=== PATIENT | male | born 1965 | race Caucasian/White ===

== ENCOUNTER 2021-08-14 08:13 | Outpatient (CLI) | payer BC, SELFPAY ==
--- NOTE | 2021-08-14 10:00 | EST_ITS ---
Patient Info Name: Dexter De Santiago Age: 56 years : 1965 Gender: Male Ht: 65 in Wt: 180 lbs BSA: 1.96 m2 HR: 100 bpm BP: 118 / 90 mmHg Heart Rhythm: Tachycardia Technical Quality: Good Exam Date: 08/14/2021 9:43 AM Exam Location: [facility] [place] Patient Status: Outpatient Admit Date: 08/14/2021 Staff Ordering Physician: Lio Barry MD Attending Provider: Cynthia Alonso CEP Exercise Technologist: Aylin Horton CRT Exercise Physician: Cynthia Alonso CEP Exam Type: CA stress test treadmill w NM Study Info Indications AbnormalEKG - An exercise stress test was performed. History/Risk Factors Abnormal EKG. Inferior ST elevation. Summary 1. 1. Negative Binh exercise stress test for ischemic ST changes by ECG criteria. 2. 2. Good functional capacity, achieving 10 METs of workload. 3. 3. Appropriate HR response to exercise. 4. 4. Appropriate HR recovery at 1 minute post exercise. 5. 5. Nuclear scan to follow and will be reported separately. Please correlate with it. Protocol: Ibnh Stress ECG Details Stage: REST Duration (min): 1 min : 6 sec Speed (mph): 0.0 Grade (%): 0 HR (bpm): 101 SBP (mmHg): 118 DBP (mmHg): 90 METS: --- Stage: REST Duration (min): 15 min : 35 sec Speed (mph): 0.0 Grade (%): 0 HR (bpm): 104 SBP (mmHg): 118 DBP (mmHg): 90 METS: --- Stage: STAGE 1 Duration (min): 1 min : 0 sec Speed (mph): 1.7 Grade (%): 10 HR (bpm): 123 SBP (mmHg): 118 DBP (mmHg): 90 METS: --- Stage: STAGE 1 Duration (min): 2 min : 0 sec Speed (mph): 1.7 Grade (%): 10 HR (bpm): 130 SBP (mmHg): 118 DBP (mmHg): 90 METS: --- Stage: STAGE 1 Duration (min): 3 min : 0 sec Speed (mph): 1.7 Grade (%): 10 HR (bpm): 130 SBP (mmHg): 118 DBP (mmHg): 90 METS: --- Stage: STAGE 2 Duration (min): 1 min : 0 sec Speed (mph): 2.5 Grade (%): 12 HR (bpm): 132 SBP (mmHg): 118 DBP (mmHg): 90 METS: --- Stage: STAGE 2 Duration (min): 2 min : 0 sec Speed (mph): 2.5 Grade (%): 12 HR (bpm): 146 SBP (mmHg): 164 DBP (mmHg): 72 METS: --- Stage: STAGE 2 Duration (min): 3 min : 0 sec Speed (mph): 2.5 Grade (%): 12 HR (bpm): 143 SBP (mmHg): 164 DBP (mmHg): 72 METS: --- Stage: STAGE 3 Duration (min): 1 min : 0 sec Speed (mph): 3.4 Grade (%): 14 HR (bpm): 158 SBP (mmHg): 164 DBP (mmHg): 80 METS: --- Stage: STAGE 3 Duration (min): 2 min : 0 sec Speed (mph): 3.4 Grade (%): 14 HR (bpm): 166 SBP (mmHg): 164 DBP (mmHg): 80 METS: --- Stage: STAGE 3 Duration (min): 2 min : 15 sec Speed (mph): 3.4 Grade (%): 14 HR (bpm): 166 SBP (mmHg): 168 DBP (mmHg): 78 METS: --- Stage: RECOVERY Duration (min): 0 min : 44 sec Speed (mph): 0.0 Grade (%): 0 HR
--- NOTE | 2021-08-14 16:49 | WPDCARIOSTRE ---
Nuclear Stress Test INDICATIONS Indications: Chest pain PROCEDURE Procedure Performed: Myocardial Perf Spect-Multi Procedure: Patient exercised on a Binh treadmill stress test and at peak exercise was injected with 31.4 mCi of cardiolyte. Multiple tomographic images were obtained. These are of fair quality. There is evidence of small size, mild anterior perfusion defect, and a moderate size, severe inferior perfusion defect during stress imaging. A separate resting images were obtained after patient was injected with 9.9 mCi of cardiolyte. Multiple tomographic images were obtained. These are of good quality. There is no perfusion defect during resting imaging. CONCLUSION Conclusion: 1. Abnormal myocardial perfusion imaging demonstrating a small size anterior and moderate size inferior perfusion defects during stress imaging suggesting reversible ischemia. 2. Left ventriculogram demonstrate a measured ejection fraction of 68% with no wall motion abnormalities. 3. TID score of 0.59 is normal.
== END 2021-08-14 08:14 | disposition home or self-care (01) ==
LOC: CHSIMG 08:17
PROVIDERS: PCP Family Medicine; Visit Provider Family Medicine
DX: R94.31 Abnormal electrocardiogram [ECG] [EKG] (principal)
CPT/HCPCS: 78452; 93017; A9502

== ENCOUNTER 2022-08-06 00:44 | Day surgery (SDC) | payer BC, SELFPAY ==
[2022-07-26 13:10] VITALS: BMI 30.4
[2022-08-06 09:19] VITALS: BP 139/84; PULSE 92; RESP 18; TEMP 36.5; O2SAT 98
[2022-08-06] MEDS: LACTATED RINGERS 1,000 ML 150 ML IV CONT (09:31)
--- NOTE | 2022-08-06 09:55 | P.PNAN_ITS ---
Anes - Initial Pre Proc Eval Procedure: Operation Date: 08/06/22 10:45 Proposed Procedures p Esophagogastroduodenoscopy & Screening Colonoscopy - Sundeep Valente MD Date/Time: 08/06/22 09:55 Surgeon: Sundeep Gutierrez MD Pre Op Diagnosis: GERD; Neoplasm screening Patient Data Age: 57 Gender: M Height: 1.65 m Weight: 82 kg Last Vital Signs Temp 97.7 F 08/06/22 09:19 Pulse 92 08/06/22 09:19 Resp 18 08/06/22 09:19 BP 139/84 08/06/22 09:19 Pulse Ox 98 08/06/22 09:19 O2 Del Method Room Air 08/06/22 09:19 Allergies Allergy/AdvReac Type Severity Reaction Status Date / Time iodine Allergy Unknown unknown Verified 08/06/22 09:17 Home Medications Medication Instructions Recorded Confirmed Type esomeprazole magnesium 40 mg 40 mg PO DAILY 08/30/21 08/06/22 History capsule,delayed release (Nexium) Patient hx anesthesia problems: none Family hx anesthesia problems: none Results Review: All pre-operative results and documents have been reviewed as part of the pre- operative evaluation. REPLACED BY [facility] Past Medical History Medical History Colon cancer screening GERD (gastroesophageal reflux disease) Irritable bowel syndrome Social History Social History Smoking status: Former smoker Smokeless tobacco user: chewing tobacco Alcohol intake: current Drinks per week: 12 Substance use: never Substance use type: does not use Living arrangements: with family Spiritual care concerns: No Anes - Eval Final PreProcedure Day of Procedure 08/06/22 09:55 Patient weight: normal Heart: regular rate and rhythm Lungs: clear to auscultation Airway: Mallampati scale class II Neurological: alert and oriented Last oral intake: >/= 8 hours ASA classification: II Emergent: no Anesthetic plan: proceed Anesthesia type and monitoring: general GIVS and standard monitoring Results Review: All pre-operative results and documents have been reviewed as part of the pre- operative evaluation. Informed Consent: The patient's anesthetic plan and its attendant risks and benefits were discussed with the patient/family/POA. Questions were solicited and answers provided to the satisfaction of the patient/family/POA.
--- NOTE | 2022-08-06 10:04 | PM.HPGS ---
History of Present Illness History of Present Illness Consent: Risks, benefits, and alternatives have been discussed and questions answered. Patient agrees to proceed with procedure. Chief complaint: GERD; Neoplasm screening Narrative: Dexter De Santiago Jr. is a 57 year old male here for egd and colonoscopy. He was diagnosed with IBS about 20 years ago and has been dealing with intermittent abdominal discomfort and sometimes loose stools. He had egd and colonoscopy about 20 years ago, cologuard 2019. Nexium helping with gerd symptoms. Review of Systems Constitutional: Constitutional: Denies headache(s) and Denies weakness Eyes: Eyes: Denies blurry vision ENT: Reports Normal hearing present, Denies headache(s) and Denies neck pain Cardiovascular: Cardiovascular: Denies chest pain and Denies dyspnea Respiratory: Respiratory: Denies dyspnea Gastrointestinal: Gastrointestinal: Reports no additional gastrointestinal complaints Genitourinary: Genitourinary: Denies dysuria Musculoskeletal: Musculoskeletal: Denies neck pain Integumentary/Breasts: Skin/Breast: Denies dry skin Neurologic: Reports Normal hearing present, Denies headache(s) and Denies weakness Psychiatric: Psychiatric: Denies anxiety Endocrine: Endocrine: Denies change in body appearance Hematologic/Lymphatic: Hematologic/Lymphatic: Denies easy bleeding Allergic/Immunologic: Allergic/Immunologic: Denies urticaria PMFSH Past Medical History Medical History Colon cancer screening GERD (gastroesophageal reflux disease) Irritable bowel syndrome Social History Social History Smoking status: Former smoker Smokeless tobacco user: chewing tobacco Alcohol intake: current Drinks per week: 12 Substance use: never Substance use type: does not use Living arrangements: with family Spiritual care concerns: No Meds Home Medications and Allergies Home Medications Medication Instructions Recorded Confirmed Type esomeprazole magnesium 40 mg 40 mg PO DAILY 08/30/21 08/06/22 History capsule,delayed release (Nexium) Allergies Allergy/AdvReac Type Severity Reaction Status Date / Time iodine Allergy Unknown unknown Verified 08/06/22 09:17 Vital Signs Vital Signs - 24 hr 08/06/22 09:19 Temperature 97.7 F Pulse Rate 92 Respiratory Rate 18 Blood Pressure 139/84 Pulse Oximetry 98 Oxygen Delivery Room Air Exam Const: General: comfortable and no acute distress HENMT: Face/Nose/Sinus: Normal nares present Eyes: General: appearance normal, both eyes and all related structures Neck: Neck: no JVD Resp: Auscultation: clear to auscultation bilaterally Cardio: Rate: regular rate Rhythm: regular rhythm GI: Inspection: non-distended GI Palp: Yes Soft to palpation Skin: General skin exam: normal color Neuro: General: gait normal Speech: normal speech Extrem: General: normal to inspection Psych: Mental Status: mental status grossly normal Assessment and Plan Assessment and plan (1) GERD (gastroesophageal reflux disease): Code(s): K21.9 - Gastro-esophageal reflux disease without esophagitis Status: Acute Assessment and Plan: egd with bx on ppi (2) Irritable bowel syndrome: Code(s): K58.9 - Irritable bowel syndrome without diarrhea Status: Acute Assessment and Plan: will check also for celiac (3) Colon cancer screening: Code(s): Z12.11 - Encounter for screening for malignant neoplasm of colon Status: Acute Assessment and Plan: colonoscopy
[2022-08-06 10:32] VITALS: BP 112/77; PULSE 79; RESP 17; TEMP 36.5; O2SAT 98
--- NOTE | 2022-08-06 10:32 | SUR.OPER ---
EGD START 1013, END 1016 COLONOSCOPY START 1020, END 1029
[2022-08-06 10:42] VITALS: BP 114/81; PULSE 97; RESP 22; TEMP 36.5; O2SAT 98
[2022-08-06 10:52] VITALS: BP 122/89; PULSE 81; RESP 23; TEMP 36.5; O2SAT 98
== END 2022-08-06 10:58 | disposition home or self-care (01) ==
PROVIDERS: PCP Family Medicine; Visit Provider Internal Medicine Gastroenterology
PROC: 0DJ08ZZ Inspection of Upper Intestinal Tract, Via Natural or Artificial Opening Endoscopic (ICD-10-PCS; CPT 43235; principal; 2022-08-06 10:45)
DX: Z12.11 Encounter for screening for malignant neoplasm of colon (principal); K57.30 Diverticulosis of large intestine without perforation or abscess without bleeding; D12.3 Benign neoplasm of transverse colon; K64.8 Other hemorrhoids; K29.70 Gastritis, unspecified, without bleeding; K21.9 Gastro-esophageal reflux disease without esophagitis; K58.9 Irritable bowel syndrome, unspecified; F17.220 Nicotine dependence, chewing tobacco, uncomplicated
CPT/HCPCS: 45385; 43239; 88305; J2704; J7120

== ENCOUNTER 2023-08-09 07:03 | Outpatient (CLI) | payer BC, SELFPAY ==
[2023-08-09 07:17] LABS: Basophils Absolute Auto 0.05 K/mm3 (0.00-0.10); Basophils Percent Auto 0.7 % (0.0-1.0); Eosinophils Absolute Auto 0.14 K/mm3 (0.02-0.50); Eosinophils Percent Auto 2.1 % (1.0-6.0); Hematocrit 43.8 % (40.0-54.0); Immature Granulocyte Absolute 0.09 K/mm3 (0.00-0.00); Immature Granulocyte Percent A 1.3 % (0.0-0.0); Lymphocytes Absolute Auto 1.81 K/mm3 (1.10-4.50); Lymphocytes Percent Auto 26.8 % (18.0-42.0); Mean Corpuscular HGB Conc 34.2 g/dL (32.0-36.0); Mean Corpuscular Hemoglobin 31.3 pg (27.0-31.0); Mean Corpuscular Volume 91.4 fL (78.0-102.0); Mean Platelet Volume 8.9 fl (8.7-11.0); Monocytes Absolute Auto 0.61 K/mm3 (0.10-0.90); Neutrophils Absolute Auto 4.1 K/mm3 (1.7-7.2); Neutrophils Percent Auto 60.1 % (50.0-70.0); Platelet Count Result 261 K/mm3 (150-420); Red Blood Count 4.79 M/mm3 (4.70-6.10); Red Cell Distribution Width 11.4 % (11.6-14.4); White Blood Count 6.8 K/mm3 (4.8-10.8)
[2023-08-09 07:20] LABS: Appearance Urine Clear (Clear); Bilirubin Urine Negative (Negative); Blood Urine Negative (Negative); Color Urine Light Yellow (Yellow); Glucose Urine UA Negative (Negative); Ketones Urine Negative (Negative); Leukocyte Esterase Ur Negative (Negative); Nitrate Urine Negative (Negative); Protein Urine Negative (Negative); Specific Grav Ur >= 1.030 (1.010-1.020); Urobilinogen Urine 0.2 mg/dL (0.2-1.0); pH Urine 5.5 (5.0-8.0)
[2023-08-09 07:23] LABS: Add Urine Microscopic? NO
[2023-08-09 08:25] LABS: Alanine Aminotransferase 31 U/L (16-63); Albumin Level 3.9 g/dL (3.4-5.0); Alkaline Phosphatase 81 U/L (46-116); Anion Gap 9 mmol/L (8-16); Aspartate Amino Transferase 14 U/L (15-37); Bilirubin,Total 0.7 mg/dL (0.00-1.00); Blood Urea Nitrogen 29 mg/dL (7-18); Calcium 9.2 mg/dL (8.5-10.1); Carbon Dioxide 26 mmol/L (21-32); Chloride 103 mmol/L (98-108); Cholesterol 227 mg/dL (0-200); Estimated Glomerular Filt Rate > 60; Glucose 110 mg/dL (70-99); HDL Direct 38 mg/dL (40-60); LDL Cholesterol Calculated 128 mg/dL (<130); Osmolality Calculated 292 mOsm/kg (285-295); Potassium 4.4 mmol/L (3.5-5.1); Prostate Specific Antigen 6.9 ng/mL (< OR = 4.0); Sodium 138 mmol/L (136-145); Thyroid Stimulating Hormone 1.54 uIU/mL (0.36-3.74); Total Protein 7.1 g/dL (6.4-8.2); Triglycerides 307 mg/dL (0-150)
[2023-08-09 16:33] LABS: Hemoglobin A1C 6.2 % (<5.7)
== END 2023-08-09 07:04 | disposition home or self-care (01) ==
LOC: CHSLAB 07:05
PROVIDERS: PCP Family Medicine; Visit Provider Family Medicine
DX: Z00.00 Encounter for general adult medical examination without abnormal findings (principal); E78.2 Mixed hyperlipidemia; Z12.5 Encounter for screening for malignant neoplasm of prostate; R73.01 Impaired fasting glucose
CPT/HCPCS: 36415; 80053; 80061; 81003; 83036; 84153; 84443; 85025; G0103

== ENCOUNTER 2024-02-03 07:04 | Outpatient (CLI) | payer BC, SELFPAY ==
--- NOTE | ~2024-02-03 | XR_ITS ---
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 COMPARISON: None available. FINDINGS: Normal mineralization. No fracture or dislocation. No lytic or blastic lesion. Lumbar dege nerative disc disease and facet arthropathy. Moderate right hip superior joint space narrowing and mi ld femoral head osteophytosis. Mild pelvic enthesopathy. No erosion or periosteal change. Soft tissue s within normal limits. IMPRESSION: Moderate right hip osteoarthritis. Reviewed, dictated and finalized at location K.
--- NOTE | ~2024-02-03 | XR_ITS ---
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 COMPARISON: None available. FINDINGS: Normal mineralization. No fracture or dislocation. No lytic or blastic lesion. Moderate os teoarthritic change at the second and third MCP joints, worse on the right. Moderate degenerative dionicio nge in the right thumb phalangeal joint. More mild osteoarthritic changes also present and multiple a dditional joints of the fingers and wrists. No erosion or periosteal change. Soft tissues within norm al limits. 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 Reviewed, dictated and finalized at location K. 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
[2024-02-03 07:43] LABS: Basophils Absolute Auto 0.05 K/mm3 (0.00-0.10); Basophils Percent Auto 0.8 % (0.0-1.0); Eosinophils Absolute Auto 0.09 K/mm3 (0.02-0.50); Eosinophils Percent Auto 1.4 % (1.0-6.0); Hematocrit 44.1 % (40.0-54.0); Hemoglobin 14.8 g/dL (14.0-18.0); Immature Granulocyte Absolute 0.04 K/mm3 (0.00-0.00); Immature Granulocyte Percent A 0.6 % (0.0-0.0); Lymphocytes Absolute Auto 1.53 K/mm3 (1.10-4.50); Lymphocytes Percent Auto 24.2 % (18.0-42.0); Mean Corpuscular HGB Conc 33.6 g/dL (32-36); Mean Corpuscular Hemoglobin 31.4 pg (27.0-31.0); Mean Corpuscular Volume 93.4 fL (78.0-102.0); Mean Platelet Volume 9.4 fl (8.7-11.0); Monocytes Absolute Auto 0.42 K/mm3 (0.10-0.90); Monocytes Percent Auto 6.6 % (2.0-11.0); Neutrophils Absolute Auto 4.19 K/mm3 (1.70-7.20); Neutrophils Percent Auto 66.4 % (50.0-70.0); Platelet Count Result 233 K/mm3 (150-420); Red Blood Count 4.72 M/mm3 (4.70-6.10); Red Cell Distribution Width 12.2 % (11.6-14.4); White Blood Count 6.3 K/mm3 (4.8-10.8)
[2024-02-03 07:55] LABS: Hemoglobin A1C 5.5 % (<5.7)
[2024-02-03 08:24] LABS: Alanine Aminotransferase 37 U/L (16-63); Albumin Level 4.2 g/dL (3.4-5.0); Alkaline Phosphatase 75 U/L (46-116); Anion Gap 8 mmol/L (4-12); Aspartate Amino Transferase 30 U/L (15-37); Bilirubin,Total 1.2 mg/dL (0.00-1.00); Blood Urea Nitrogen 25 mg/dL (7-18); Carbon Dioxide 30 mmol/L (21-32); Chloride 102 mmol/L (98-108); Cholesterol 246 mg/dL (0-200); Estimated Glomerular Filt Rate 59; Glucose 91 mg/dL (70-99); HDL Direct 70 mg/dL (40-60); LDL Cholesterol Calculated 158 mg/dL (<130); Osmolality Calculated 294 mOsm/kg (285-295); Potassium 4.8 mmol/L (3.5-5.1); Prostate Specific Antigen 5.9 ng/mL (< OR = 4.0); Sodium 140 mmol/L (136-145); Total Protein 7.5 g/dL (6.4-8.2); Triglycerides 91 mg/dL (0-150)
[2024-02-04 16:40] LABS: Bilirubin Direct 0.2 mg/dL (0-0.2)
== END 2024-02-03 07:05 | disposition home or self-care (01) ==
PROVIDERS: PCP Family Medicine; Visit Provider Family Medicine
DX: K29.60 Other gastritis without bleeding (principal); R73.9 Hyperglycemia, unspecified; R97.20 Elevated prostate specific antigen [PSA]; M25.551 Pain in right hip; M16.11 Unilateral primary osteoarthritis, right hip; M19.042 Primary osteoarthritis, left hand; M19.041 Primary osteoarthritis, right hand
CPT/HCPCS: 36415; 73130; 73502; 80053; 80061; 82248; 83036; 84153; 85025

== ENCOUNTER 2024-03-03 13:33 | Outpatient (CLI) | payer BC, SELFPAY ==
--- NOTE | 2024-03-03 14:30 | NEURO_ITS ---
Impression: # Complains of paresthesia of hands. # Subtle evolving right Carpal Tunnel Syndrome. # No ulnar neuropathy. # Needle/EMG exam not ordered. Nerve Conduction Studies Anti Sensory Summary Table Stim Site NR Peak (ms) P-T Amp (?V) Site1 Site2 Delta-P (ms) Dist (cm) Kaz (m/s) Left Median Anti Sensory (2-3nd Digit) Wrist 3.1 37.1 Wrist 2-3nd Digit 3.1 14.0 45 Wrist 3.1 38.3 Wrist 2-3nd Digit 3.1 14.0 45 Right Median Anti Sensory (2-3nd Digit) Wrist 3.3 18.7 Wrist 2-3nd Digit 3.3 14.0 42 Wrist 3.4 59.0 Wrist 2-3nd Digit 3.3 14.0 42 Left Radial Anti Sensory (Base 1st Digit) Wrist 1.9 22.3 Wrist Base 1st Digit 1.9 0.0 Right Radial Anti Sensory (Base 1st Digit) Wrist 2.1 16.1 Wrist Base 1st Digit 2.1 0.0 Left Ulnar Anti Sensory (5th Digit) Wrist 2.5 13.5 Wrist 5th Digit 2.5 14.0 56 Right Ulnar Anti Sensory (5th Digit) Wrist 2.4 20.5 Wrist 5th Digit 2.4 14.0 58 Motor Summary Table Stim Site NR Onset (ms) O-P Amp (mV) Site1 Site2 Delta-0 (ms) Dist (cm) Kaz (m/s) Left Median Motor (Abd Poll Brev) Wrist 3.2 1.6 Elbow Wrist 5.1 28.0 55 Elbow 8.3 3.0 Right Median Motor (Abd Poll Brev) Wrist 3.9 3.4 Elbow Wrist 4.6 26.0 57 Elbow 8.5 4.8 Left Ulnar Motor (Abd Dig Minimi) Wrist 2.7 6.1 A Elbow Wrist 4.8 29.0 60 A Elbow 7.5 5.9 Right Ulnar Motor (Abd Dig Minimi) Wrist 2.4 6.4 A Elbow Wrist 4.9 28.0 57 A Elbow 7.3 5.1 F Wave Studies NR F-Lat (ms) L-R F-Lat (ms) Left Median (Mrkrs) (Abd Poll Brev) 26.84 0.55 Right Median (Mrkrs) (Abd Poll Brev) 27.39 0.55 Left Ulnar (Mrkrs) (Abd Dig Min) 26.75 0.73 Right Ulnar (Mrkrs) (Abd Dig Min) 26.02 0.73 MTDD
== END 2024-03-03 13:34 | disposition home or self-care (01) ==
LOC: ANHNEURO 13:34
PROVIDERS: PCP Family Medicine; Visit Provider Family Medicine
DX: G56.01 Carpal tunnel syndrome, right upper limb (principal)
CPT/HCPCS: 95911

== ENCOUNTER 2024-06-11 15:41 | Outpatient (CLI) | payer BC, SELFPAY ==
--- NOTE | ~2024-06-11 | XR_ITS ---
Left Shoulder Technique: AP and scapular Y views were obtained. Clinical History: Pain Findings: No fracture or dislocation is seen. Osseous alignment is anatomic. The glenohumeral and acr omioclavicular joint spaces are preserved. Soft tissues are unremarkable. Impression: Unremarkable left shoulder radiographs. Reviewed, dictated and finalized at [facility]. Impression: Unremarkable left shoulder radiographs.
== END 2024-06-11 15:42 | disposition home or self-care (01) ==
LOC: CHSIMG 15:44
PROVIDERS: PCP Family Medicine; Visit Provider Family Medicine
DX: M25.512 Pain in left shoulder (principal)
CPT/HCPCS: 73030

== ENCOUNTER 2024-08-10 07:04 | Outpatient (CLI) | payer BC, SELFPAY ==
[2024-08-10 07:19] LABS: Basophils Absolute Auto 0.04 K/mm3 (0.00-0.10); Basophils Percent Auto 0.6 % (0.0-1.0); Eosinophils Percent Auto 2.9 % (1.0-6.0); Hemoglobin 14.7 g/dL (14.0-18.0); Immature Granulocyte Absolute 0.05 K/mm3 (0.00-0.00); Immature Granulocyte Percent A 0.7 % (0.0-0.0); Lymphocytes Absolute Auto 1.91 K/mm3 (1.10-4.50); Lymphocytes Percent Auto 27.8 % (18.0-42.0); Mean Corpuscular HGB Conc 34.2 g/dL (32-36); Mean Corpuscular Hemoglobin 31.5 pg (27.0-31.0); Mean Corpuscular Volume 92.3 fL (78.0-102.0); Monocytes Absolute Auto 0.55 K/mm3 (0.10-0.90); Neutrophils Absolute Auto 4.11 K/mm3 (1.70-7.20); Platelet Count Result 237 K/mm3 (150-420); Red Blood Count 4.66 M/mm3 (4.70-6.10); Red Cell Distribution Width 11.7 % (11.6-14.4); White Blood Count 6.9 K/mm3 (4.8-10.8)
[2024-08-10 07:31] LABS: Hemoglobin A1C 5.5 % (<5.7)
[2024-08-10 08:08] LABS: Alanine Aminotransferase 21 U/L (16-63); Alkaline Phosphatase 89 U/L (46-116); Anion Gap 8 mmol/L (4-12); Aspartate Amino Transferase 22 U/L (15-37); Bilirubin,Total 0.4 mg/dL (0.00-1.00); Blood Urea Nitrogen 18 mg/dL (7-18); Calcium 9.3 mg/dL (8.5-10.1); Carbon Dioxide 32 mmol/L (21-32); Chloride 102 mmol/L (98-108); Cholesterol 199 mg/dL (0-200); Estimated Glomerular Filt Rate > 60; Glucose 103 mg/dL (70-99); HDL Direct 49 mg/dL (40-60); LDL Cholesterol Calculated 121 mg/dL (<130); Osmolality Calculated 295 mOsm/kg (285-295); Potassium 4.6 mmol/L (3.5-5.1); Prostate Specific Antigen 5.8 ng/mL (< OR = 4.0); Sodium 142 mmol/L (136-145); Total Protein 7.2 g/dL (6.4-8.2); Triglycerides 146 mg/dL (0-150)
== END 2024-08-10 07:05 | disposition home or self-care (01) ==
LOC: CHSLAB 07:07
PROVIDERS: PCP Family Medicine; Visit Provider Family Medicine
DX: Z79.899 Other long term (current) drug therapy (principal); R73.9 Hyperglycemia, unspecified; Z13.220 Encounter for screening for lipoid disorders; R97.20 Elevated prostate specific antigen [PSA]
CPT/HCPCS: 36415; 80053; 80061; 83036; 84153; 85025

== ENCOUNTER 2024-12-03 15:08 | Outpatient (CLI) | payer BC, SELFPAY ==
[2024-12-03 15:25] LABS: Add Urine Microscopic? NO; Appearance Urine Clear (Clear); Basophils Absolute Auto 0.07 K/mm3 (0.00-0.10); Basophils Percent Auto 0.8 % (0.0-1.0); Bilirubin Urine Negative (Negative); Blood Urine Negative (Negative); Color Urine Yellow (Yellow); Eosinophils Absolute Auto 0.11 K/mm3 (0.02-0.50); Eosinophils Percent Auto 1.3 % (1.0-6.0); Glucose Urine UA Negative (Negative); Hematocrit 43.5 % (40.0-54.0); Hemoglobin 14.5 g/dL (14.0-18.0); Immature Granulocyte Absolute 0.05 K/mm3 (0.00-0.00); Immature Granulocyte Percent A 0.6 % (0.0-0.0); Ketones Urine Negative (Negative); Leukocyte Esterase Ur Negative (Negative); Lymphocytes Absolute Auto 2.25 K/mm3 (1.10-4.50); Lymphocytes Percent Auto 26.8 % (18.0-42.0); Mean Corpuscular HGB Conc 33.3 g/dL (32-36); Mean Corpuscular Hemoglobin 30.2 pg (27.0-31.0); Mean Corpuscular Volume 90.6 fL (78.0-102.0); Mean Platelet Volume 9.1 fl (8.7-11.0); Monocytes Absolute Auto 0.62 K/mm3 (0.10-0.90); Monocytes Percent Auto 7.4 % (2.0-11.0); Neutrophils Absolute Auto 5.28 K/mm3 (1.70-7.20); Neutrophils Percent Auto 63.1 % (50.0-70.0); Nitrate Urine Negative (Negative); Platelet Count Result 262 K/mm3 (150-420); Protein Urine Negative (Negative); Red Cell Distribution Width 11.7 % (11.6-14.4); Specific Grav Ur >= 1.030 (1.010-1.020); Urobilinogen Urine 0.2 mg/dL (0.2-1.0); White Blood Count 8.4 K/mm3 (4.8-10.8)
[2024-12-03 15:39] LABS: INR 0.9; Partial Thromboplastin Time 29.2 Sec (23.9-30.70); Prothrombin Time 10.3 Seconds (9.50-12.1)
--- OUTSIDE RECORDS SUMMARY | 2024-12-03 16:22 | XMS_ITS | Clinical Summary ---
Author Organization [facility] Address [address] [place] [address] Care Team Providers Care Youth Probation Officer Name Role Phone Unavailable Primary Care Provider Unavailabl e Encounters Date Type Department Care Team Description 11/24/2024 External Device Data STL ABSTRACTION Provider, Abstract 11/10/2024 External Device Data STL ABSTRACTION Provider, Abstract 10/22/2024 External Device Data STL ABSTRACTION Provider, Abstract 10/13/2024 External Device Data STL ABSTRACTION Provider, Abstract 10/06/2024 External Device Data STL ABSTRACTION Provider, Abstract 09/29/2024 External Device Data STL ABSTRACTION Provider, Abstract 09/24/2024 2:15 PM FLAMER AFTER LASTING Ancillary Procedure [facility] [address] [place] [address] Filiberto Roque MD Degenerative joint disease involving multiple joints on both sides of body from Last 3 Months Social History Tobacco Use Types Packs/Day Years Used Date Smoking Tobacco: Never Assessed Sex and Gender Information Value Date Recorded Sex Assigned at Not on file Legal Sex Male 2:11 PM FLAMER AFTER LASTING Gender Identity Not on file Sexual Orientation Not on file Plan of Treatment Health Maintenance Due Date Last Done Comments Pre-Diabetes and Diabetes Screening 1965 DTAP/TDAP/TD VACCINES (1 - Tdap) 1986 HEPATITIS B VACCINES (1 of 3 - 19+ 3-dose series) 1986 COLORECTAL SCREENING 2012 Colorectal Cancer Screening 2012 FIT-DNA Q 3 years 2012 FIT/FOBT Q 1 year 2012 Flex Sig/CT Colonography Q 5 years 2012 ZOSTER VACCINE (1 of 2) 2017 INFLUENZA VACCINE (#1) 2024 PNEUMOCOCCAL VACCINE 0-49 YEARS Aged Out No longer eligible based on patient's age to complete this topic Procedures Procedure Name Priority Date/Time Associated Diagnosis Comments XR SHOULDER 2+ VW LEFT Routine 09/24/2024 2:32 PM FLAMER AFTER LASTING Degenerative joint disease involving multiple joints on both sides of body from Last 3 Months Results * XR SHOULDER 2+ VW LEFT (09/24/2024 2:32 PM FLAMER AFTER LASTING) Anatomical Region Laterality Modality Upper Extremity Computed Radiogr aphy 09/24/2024 2:33 PM FLAMER AFTER LASTING Narrative 09/24/2024 2:52 PM FLAMER AFTER LASTING Unremarkable exam. Procedure Note Leon Richard MD - 09/24/2024 Unremarkable exam. Filiberto Roque MD DIAGNOSTIC IMAGING ORDERABLES F inal Result from Last 3 Months Insurance [employer]
--- OUTSIDE RECORDS SUMMARY | 2024-12-03 16:22 | XMS_ITS | Clinical Summary ---
Author Organization [facility] Healthcare Address [address] [place] [address] Care Team Providers Care Edi Coordinator Name Role Phone Lio Barry MD Primary Care Provide r Allergies Active Allergy Reactions Criticality Noted Date Comments Iodine Hives Medium 09/12/[address] (VOLTAREN) 75 mg EC tablet 01/30/2024 Active finasteride-tadala david 5-5 mg capsule 08/30/2023 Active Active Problems No known active problems Medical History Medical History Date Comments GERD (gastroesophageal reflux disease) 2009 Arthritis 2015 Family History Medical History Relation Name Comments Arthritis Father Dexter Sr. COPD Mother Isabel Relation Name Status Comments Father Dexter Sr. Mother Isabel Social History Tobacco Use Types Packs/Day Years Used Date Smoking Tobacco: Never Cigarettes Smokeless Tobacco: Never Tobacco Cessation:Counseling Given: Not Answered Personal Safety Answer Date Recorded Getting School Help Needed Not on file 12/14 Sex and Gender Information Value Date Recorded Sex Assigned at Not on file Legal Sex Male 2:05 PM PRECISION AGRONOMIST Gender Identity Male 09/12/2021 8:01 AM PRECISION AGRONOMIST Sexual Orientation Not on file Obstetrics History Last Filed Vital Signs Vital Sign Reading Time Taken Comments Blood Pressure 134/89 09/12/2021 9:49 AM PRECISION AGRONOMIST Pulse 98 09/12/2021 9:49 AM PRECISION AGRONOMIST Temperature - - Respiratory Rate - - Oxygen Saturation - - Inhaled Oxygen Concentration - - Weight 73.5 kg (162 lb) 05/05/2024 9:46 AM CDT Height 166.4 cm (5' 5.5 ) 09/12/2021 8:40 AM PRECISION AGRONOMIST Body Mass Index 26.55 09/12/2021 8:40 AM PRECISION AGRONOMIST Plan of Treatment Health Maintenance Due Date Last Done Comments Colon Cancer Screening-Colonoscopy 1965 Depression Screening 1965 Hepatitis C Screening 1965 Prostate Cancer Screening-PSA 1967 DTaP/Tdap/Td Vaccine (1 - Tdap) 1978 Hepatitis B Screening 1985 Regular Well Visit/Exam 18-64 1985 Zoster Vaccine (1 of 2) 2017 Influenza Vaccine (#1) 2024 Pneumococcal vaccine <65 Aged Out No longer eligible based on patient's age to complete this topic Insurance [employer] Care Teams Edi Coordinator Relationship Specialty Start Date End Date Lio Barry MD [address] [place] [address] PCP - General 09/12/21
--- OUTSIDE RECORDS SUMMARY | 2024-12-03 16:22 | XMS_ITS | Referral Summary ---
Author Organization [facility] Healthcare Address [address] [place] [address] Care Team Providers Care Social Worker Psychiatric Name Role Phone Lio Barry MD Primary Care Provide r Allergies Active Allergy Reactions Criticality Noted Date Comments Iodine Hives Medium 09/12/[address] (PAUL) 75 mg EC tablet 01/30/2024 Active finasteride-tadala david 5-5 mg capsule 08/30/2023 Active Active Problems No known active problems Social History Tobacco Use Types Packs/Day Years Used Date Smoking Tobacco: Never Cigarettes Smokeless Tobacco: Never Tobacco Cessation:Counseling Given: Not Answered Personal Safety Answer Date Recorded Getting School Help Needed Not on file 12/14 Sex and Gender Information Value Date Recorded Sex Assigned at Not on file Legal Sex Male 2:05 PM QUALITY ASSURANCE QA LAB ANALYST Gender Identity Male 09/12/2021 8:01 AM QUALITY ASSURANCE QA LAB ANALYST Sexual Orientation Not on file Last Filed Vital Signs Vital Sign Reading Time Taken Comments Blood Pressure 134/89 09/12/2021 9:49 AM QUALITY ASSURANCE QA LAB ANALYST Pulse 98 09/12/2021 9:49 AM QUALITY ASSURANCE QA LAB ANALYST Temperature - - Respiratory Rate - - Oxygen Saturation - - Inhaled Oxygen Concentration - - Weight 73.5 kg (162 lb) 05/05/2024 9:46 AM CDT Height 166.4 cm (5' 5.5 ) 09/12/2021 8:40 AM QUALITY ASSURANCE QA LAB ANALYST Body Mass Index 26.55 09/12/2021 8:40 AM QUALITY ASSURANCE QA LAB ANALYST Plan of Treatment Not on file Insurance [employer] Care Teams Social Worker Psychiatric Relationship Specialty Start Date End Date Lio Barry MD [address] [place], [place] [id number] PCP - General 09/12/21
[2024-12-03 16:29] LABS: Alanine Aminotransferase 31 U/L (16-63); Albumin Level 4.6 g/dL (3.4-5.0); Alkaline Phosphatase 89 U/L (46-116); Amylase 43 U/L (25-115); Anion Gap 9 mmol/L (4-12); Aspartate Amino Transferase 21 U/L (15-37); Bilirubin,Total 0.9 mg/dL (0.00-1.00); Blood Urea Nitrogen 20 mg/dL (7-18); Calcium 9.4 mg/dL (8.5-10.1); Carbon Dioxide 28 mmol/L (21-32); Chloride 103 mmol/L (98-108); Estimated Glomerular Filt Rate > 60; Glucose 87 mg/dL (70-99); Osmolality Calculated 291 mOsm/kg (285-295); Potassium 4.2 mmol/L (3.5-5.1); Sodium 140 mmol/L (136-145); Total Protein 7.6 g/dL (6.4-8.2)
== END 2024-12-03 15:09 | disposition home or self-care (01) ==
PROVIDERS: PCP Family Medicine; Visit Provider Family Medicine
DX: R10.9 Unspecified abdominal pain (principal); K92.1 Melena
CPT/HCPCS: 36415; 80053; 81003; 82150; 85025; 85610; 85730

== ENCOUNTER 2024-12-28 01:34 | Day surgery (SDC) | payer BC, SELFPAY ==
[2024-12-21 10:28] VITALS: BMI 27.5
--- OUTSIDE RECORDS SUMMARY | 2024-12-28 01:38 | XMS_ITS | Clinical Summary ---
Author Organization [facility] Healthcare Address [address] [place] [address] Care Team Providers Care Public Administration Teacher Name Role Phone Lio Barry MD Primary [...] on file Legal Sex Male 2:05 PM ENGINE COWLING INSTALLER Gender Identity Male 09/12/2021 8:01 AM ENGINE COWLING INSTALLER Sexual Orientation Not on file Obstetrics History Last Filed Vital Signs Vital Sign Reading Time Taken Comments Blood Pressure 134/89 09/12/2021 9:49 AM ENGINE COWLING INSTALLER Pulse 98 09/12/2021 9:49 AM ENGINE COWLING INSTALLER Temperature - - Respiratory Rate - - Oxygen Saturation - - Inhaled Oxygen Concentration - - Weight 73.5 kg (162 lb) 05/05/2024 9:46 AM CDT Height 166.4 cm (5' 5.5 ) 09/12/2021 8:40 AM ENGINE COWLING INSTALLER Body Mass Index 26.55 09/12/2021 8:40 AM ENGINE COWLING INSTALLER Plan of Treatment Health Maintenance Due Date [...] patient's age to complete this topic Insurance [employer] Care Teams Public Administration Teacher Relationship Specialty Start Date End Date Lio Barry MD [address] [place] [address] PCP - General 09/12/21
--- OUTSIDE RECORDS SUMMARY | 2024-12-28 01:38 | XMS_ITS | Clinical Summary ---
Author Organization [facility] Address [address] [place] [address] Care Team Providers Care Medication Nurse Name Role Phone Unavailable Primary Care Provider Unavailabl e Encounters Date Type Department Care Team Description 12/16/2024 External Device Data STL ABSTRACTION Provider, Abstract 12/08/2024 External Device Data STL ABSTRACTION Provider, Abstract 12/08/2024 External Device Data STL ABSTRACTION Provider, Abstract 12/05/2024 External Device Data STL ABSTRACTION Provider, Abstract 12/04/2024 External Device Data STL ABSTRACTION Provider, Abstract 11/24/2024 External Device Data STL ABSTRACTION Provider, Abstract 11/10/2024 External Device Data STL ABSTRACTION Provider, Abstract 10/22/2024 External Device Data STL ABSTRACTION Provider, Abstract 10/13/2024 External Device Data STL ABSTRACTION Provider, Abstract 10/06/2024 External Device Data STL ABSTRACTION Provider, Abstract 09/29/2024 External Device Data STL ABSTRACTION Provider, Abstract from Last 3 Months Social History Tobacco Use Types Packs/Day Years Used Date Smoking Tobacco: Never Assessed Sex and Gender Information Value Date Recorded Sex Assigned at Not on file Legal Sex Male 2:11 PM GENERAL MANAGER Gender Identity Not on file Sexual Orientation [...] patient's age to complete this topic Insurance [employer]
--- OUTSIDE RECORDS SUMMARY | 2024-12-28 01:38 | XMS_ITS | Referral Summary ---
Author Organization [facility] Healthcare Address [address] [place] [address] Care Team Providers Care Manager Functional Name Role Phone Lio Barry MD Primary [...] on file Legal Sex Male 2:05 PM CITY PLANT SUPERVISOR Gender Identity Male 09/12/2021 8:01 AM CITY PLANT SUPERVISOR Sexual Orientation Not on file Last Filed Vital Signs Vital Sign Reading Time Taken Comments Blood Pressure 134/89 09/12/2021 9:49 AM CITY PLANT SUPERVISOR Pulse 98 09/12/2021 9:49 AM CITY PLANT SUPERVISOR Temperature - - Respiratory Rate - - Oxygen Saturation - - Inhaled Oxygen Concentration - - Weight 73.5 kg (162 lb) 05/05/2024 9:46 AM CDT Height 166.4 cm (5' 5.5 ) 09/12/2021 8:40 AM CITY PLANT SUPERVISOR Body Mass Index 26.55 09/12/2021 8:40 AM CITY PLANT SUPERVISOR Plan of Treatment Not on file Insurance [employer] Care Teams Manager Functional Relationship Specialty Start Date End Date Lio Barry MD [address] [place], [place] [id number] PCP - General 09/12/21
[2024-12-28 12:51] VITALS: BP 135/85; PULSE 82; RESP 20; TEMP 36.2; O2SAT 97; BMI 27.3
[2024-12-28] MEDS: LACTATED RINGERS 1,000 ML 150 ML IV CONT (12:58)
--- NOTE | 2024-12-28 13:14 | WPDANESEPPF ---
Anes - Initial Pre Proc Eval Procedure: Operation Date: 12/28/24 14:00 Proposed Procedures p Colonoscopy - Sundeep Gutierrez MD Date/Time: 12/28/24 13:14 Surgeon: Sundeep Gutierrez MD Pre Op Diagnosis: Melena Patient Data Age: 59 Gender: M Height: 1.65 m Weight: 74.7 kg Last Vital Signs Temp 97.1 F L 12/28/24 12:51 Pulse 82 12/28/24 12:51 Resp 20 12/28/24 12:51 BP 135/85 12/28/24 12:51 Pulse Ox 97 12/28/24 12:51 O2 Del Method Room Air 12/28/24 12:51 Allergies Allergy/AdvReac Type Severity Reaction Status Date / Time iodine Allergy Unknown unknown Verified 12/28/24 12:50 Home Medications ?Medication ?Instructions ?Recorded ?Confirmed ?Type esomeprazole magnesium 40 mg 40 mg PO DAILY 08/30/21 12/28/24 History capsule,delayed release (Nexium) omega 5-qax-yoy-fish oil 1,000 mg 1 cap PO DAILY 12/05/23 12/28/24 History (120 mg-180 mg) capsule (Fish Oil) finasteride 5 mg tablet 5 mg PO DAILY 12/21/24 12/28/24 History naproxen 500 mg tablet 500 mg PO DAILY 12/21/24 12/28/24 History Patient hx anesthesia problems: none Family hx anesthesia problems: none Results Review: All pre-operative results and documents have been reviewed as part of the pre-operative evaluation. [facility] Past Medical History Medical History Colon cancer screening GERD (gastroesophageal reflux disease) Irritable bowel syndrome Social History Social History Smoking status: Former smoker Smokeless tobacco user: chewing tobacco Alcohol intake: current Drinks per week: 12 Substance use: never Substance use type: does not use Do You Feel Safe in your Home?: Yes Lack of Transportation: No Lack of Food: Never True Current Housing: I Have Housing Concerned About Future Housing: No Difficulty Paying Gas/Electric Bills: No Difficulty Paying for Meds: No Currently Unemployed: No Education: Trade/Vocational Certificate Difficulty w/ Childcare or Family Care: No Living arrangements: with family Spiritual care concerns: No Anes - Eval Final PreProcedure Day of Procedure 12/28/24 13:14 Patient weight: overweight Lungs: normal air movement Airway: Mallampati scale class II Neurological: alert and oriented Last oral intake: >/= 8 hours ASA classification: I Emergent: no Anesthetic plan: proceed Anesthesia type and monitoring: general GIVS and standard monitoring Results Review: All pre-operative results and documents have been reviewed as part of the pre-operative evaluation. Pt w GERD, hx of heart eval approx 4 years ago, no recurrence. Pt goes to gym for cardio workout 4 x weekly, no cp or sob. Informed Consent: The patient's anesthetic plan and its attendant risks and benefits were discussed with the patient/family/POA. Questions were solicited and answers provided to the satisfaction of the patient/family/POA.
--- NOTE | 2024-12-28 14:28 | PM.HPGS ---
History of Present Illness History of Present Illness Consent: Risks, benefits, and alternatives have been discussed and questions answered. Patient agrees to proceed with procedure. Chief complaint: Melena Narrative: Dexter De Santiago Jr. is a 59 year old male with blood in stool, had colonoscopy 2021 with polyp Review of Systems Review of Systems: All systems reviewed & are unremarkable except as noted in HPI and below PMFSH Past Medical History Medical History (Updated 12/28/24 @ 14:31 by Sundeep Gutierrez MD) Blood in stool Colon cancer screening GERD (gastroesophageal reflux disease) Irritable bowel syndrome Social History Social History Smoking status: Former smoker Smokeless tobacco user: chewing tobacco Alcohol intake: current Drinks per week: 12 Substance use: never Substance use type: does not use Do You Feel Safe in your Home?: Yes Lack of Transportation: No Lack of Food: Never True Current Housing: I Have Housing Concerned About Future Housing: No Difficulty Paying Gas/Electric Bills: No Difficulty Paying for Meds: No Currently Unemployed: No Education: Trade/Vocational Certificate Difficulty w/ Childcare or Family Care: No Living arrangements: with family Spiritual care concerns: No Meds Home Medications and Allergies Home Medications ?Medication ?Instructions ?Recorded ?Confirmed ?Type esomeprazole magnesium 40 mg 40 mg PO DAILY 08/30/21 12/28/24 History capsule,delayed release (Nexium) omega 7-qqu-mff-fish oil 1,000 mg 1 cap PO DAILY 12/05/23 12/28/24 History (120 mg-180 mg) capsule (Fish Oil) finasteride 5 mg tablet 5 mg PO DAILY 12/21/24 12/28/24 History naproxen 500 mg tablet 500 mg PO DAILY 12/21/24 12/28/24 History Allergies Allergy/AdvReac Type Severity Reaction Status Date / Time iodine Allergy Unknown unknown Verified 12/28/24 12:50 Vital Signs Vital Signs - 24 hr 12/28/24 12:51 Temperature 97.1 F L Pulse Rate 82 Respiratory Rate 20 Blood Pressure 135/85 Pulse Oximetry 97 Oxygen Delivery Room Air Exam Const: General: comfortable and no acute distress HENMT: Face/Nose/Sinus: Normal nares present Eyes: General: appearance normal, both eyes and all related structures Neck: Neck: no JVD Resp: Auscultation: clear to auscultation bilaterally Cardio: Rate: regular rate GI: Inspection: non-distended GI Palp: Yes Soft to palpation Skin: General skin exam: normal color Neuro: Speech: normal speech Extrem: General: normal to inspection Psych: Mental Status: mental status grossly normal Assessment and Plan Assessment and plan (1) Blood in stool: Code(s): K92.1 - Melena Status: Acute Assessment and Plan: colonoscopy
[2024-12-28 14:46] VITALS: BP 106/70; PULSE 67; RESP 18; O2SAT 97
[2024-12-28 14:56] VITALS: BP 114/78; PULSE 64; RESP 19; O2SAT 95
== END 2024-12-28 15:10 | disposition home or self-care (01) ==
PROVIDERS: PCP Family Medicine; Referring Provider Family Medicine; Visit Provider Internal Medicine Gastroenterology
PROC: 0DJD8ZZ Inspection of Lower Intestinal Tract, Via Natural or Artificial Opening Endoscopic (ICD-10-PCS; CPT 45378; principal; 2024-12-28 14:00)
DX: K64.8 Other hemorrhoids (principal); K57.30 Diverticulosis of large intestine without perforation or abscess without bleeding; K21.9 Gastro-esophageal reflux disease without esophagitis; K58.9 Irritable bowel syndrome, unspecified; F17.220 Nicotine dependence, chewing tobacco, uncomplicated; Z79.1 Long term (current) use of non-steroidal anti-inflammatories (NSAID); Z86.0100 Personal history of colon polyps, unspecified
CPT/HCPCS: 45378; J2003; J2704; J7120

== ENCOUNTER 2025-02-04 17:05 | Outpatient (CLI) | payer BC, SELFPAY ==
--- NOTE | ~2025-02-04 | XR_ITS ---
Cervical Spine: AP, lateral, oblique, open-mouth views Clinical History: Pain Findings: There is reversal of the normal cervical lordosis. There is moderate degenerative disc narr owing at C4-C5, C5-C6, C6-C7. There is mild to moderate facet arthropathy. There is mild bilateral ne ural foraminal narrowing at C6-C7. Pre-vertebral soft tissues are unremarkable. Impression: Moderate degenerative spondylosis overall, as detailed above. Reviewed, dictated and finalized at location M. Impression: Moderate degenerative spondylosis overall, as detailed above.
--- OUTSIDE RECORDS SUMMARY | 2025-02-04 17:10 | XMS_ITS | Clinical Summary ---
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
--- OUTSIDE RECORDS SUMMARY | 2025-02-04 17:10 | XMS_ITS | Clinical Summary ---
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 Gender Identity Male 09/12/2021 8:01 AM AUTOMATIC VULCANIZING OPERATOR Sexual Orientation Not on file Obstetrics History Last Filed Vital Signs Vital Sign Reading Time Taken Comments Blood Pressure 134/89 09/12/2021 9:49 AM AUTOMATIC VULCANIZING OPERATOR Pulse 98 09/12/2021 9:49 AM AUTOMATIC VULCANIZING OPERATOR Temperature - - Respiratory Rate - - Oxygen Saturation - - Inhaled Oxygen Concentration - - Weight 73.5 kg (162 lb) 05/05/2024 9:46 AM CDT Height 166.4 cm (5' 5.5 ) 09/12/2021 8:40 AM AUTOMATIC VULCANIZING OPERATOR Body Mass Index 26.55 09/12/2021 8:40 AM AUTOMATIC VULCANIZING OPERATOR Plan of Treatment Health Maintenance Due Date [...] patient's age to complete this topic Insurance [employer] Care Teams Puzzle Assembler Relationship Specialty Start Date End Date Lio Barry MD [address] [place] [address] PCP - General 09/12/21
--- OUTSIDE RECORDS SUMMARY | 2025-02-04 17:10 | XMS_ITS | Referral Summary ---
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 Gender Identity Male 09/12/2021 8:01 AM LOADER HELPER Sexual Orientation Not on file Last Filed Vital Signs Vital Sign Reading Time Taken Comments Blood Pressure 134/89 09/12/2021 9:49 AM LOADER HELPER Pulse 98 09/12/2021 9:49 AM LOADER HELPER Temperature - - Respiratory Rate - - Oxygen Saturation - - Inhaled Oxygen Concentration - - Weight 73.5 kg (162 lb) 05/05/2024 9:46 AM CDT Height 166.4 cm (5' 5.5 ) 09/12/2021 8:40 AM LOADER HELPER Body Mass Index 26.55 09/12/2021 8:40 AM LOADER HELPER Plan of Treatment Not on file Insurance [employer] Care Teams Equipment Validation Specialist Relationship Specialty Start Date End Date Lio Barry MD [address], [place] [id number] PCP - General 09/12/21
== END 2025-02-04 17:06 | disposition home or self-care (01) ==
LOC: CHSIMG 17:08
PROVIDERS: PCP Family Medicine; Visit Provider Family Medicine
DX: M54.2 Cervicalgia (principal); M43.02 Spondylolysis, cervical region
CPT/HCPCS: 72050